=== PATIENT | female | born 1975 | race Caucasian/White ===

== ENCOUNTER → 2016-12-28 | Outpatient (CLI) | payer BC ==
[~2016-12-28] MED LIST: CEPH500C PO; OXYC1TAB3 PO; PROM25TA PO
--- NOTE | 2016-12-29 12:17 | MAMMOGRAPHY REPORT ---
BILATERAL DIGITAL SCREENING MAMMOGRAM TOMOSYNTHESIS WITH CAD: 12/28/2016 CLINICAL HISTORY: Routine screening. Patient has no complaints. TECHNIQUE: Bilateral breast tomosynthesis in addition to standard 2D mammography was performed. Curr ent study was also evaluated with a Computer Aided Detection (CAD) system. COMPARISON: Comparison is made to exam dated: 10/25/2015 mammogram - [facility]. BREAST COMPOSITION: The tissue of both breasts is extremely dense, which lowers the sensitivity of mammography. FINDINGS: There is a 7 mm asymmetry in the medial, posterior left breast, seen on the 2-D CC view a nd CC tomosynthesis slice 10. Although this could represent normal overlapping fibroglandular tissu e, additional spot compression tomosynthesis views and possibly ultrasound are recommended. No other suspicious mass, architectural distortion or cluster of microcalcifications is seen bilater ally. IMPRESSION: ACR BI-RADS CATEGORY 0: INCOMPLETE EVALUATION: NEED ADDITIONAL IMAGING EVALUATION The 7 mm asymmetry in the medial left breast needs additional evaluation. The patient will be called to schedule an appointment. Approximately 10% of breast cancers are not detected with mammography. A negative mammographic repor t should not delay biopsy if a clinically suggestive mass is present. Eliza Ball M.D. ay/:12/28/2016 21:25:27 Measurer: Mohini AMAYA)(Jose Carlos), [facility] letter sent: Addl Imaging 0 BI-RADS Code: ACR BI-RADS Category 0: Incomplete Evaluation: Need Additional Imaging Evaluation
== END | disposition home or self-care (01) ==
LOC: C.MAMM 14:38
PROVIDERS: ATTEND Family Medicine
DX: Z12.31 Encounter for screening mammogram for malignant neoplasm of breast (principal); N64.89 Other specified disorders of breast

== ENCOUNTER → 2017-01-06 | Outpatient (CLI) | payer BC ==
--- NOTE | 2017-01-06 12:47 | MAMMOGRAPHY REPORT ---
UNILATERAL LEFT DIGITAL DIAGNOSTIC MAMMOGRAM TOMOSYNTHESIS AND TARGETED LEFT ULTRASOUND: 01/06/2017 CLINICAL HISTORY: Callback from screening mammogram for left breast asymmetry. TECHNIQUE: Breast tomosynthesis in addition to standard 2D mammography was performed. Spot joanie tam left CC and MLO 2-D and tomosynthesis images were obtained. COMPARISON: Comparison is made to exams dated: 12/28/2016 mammogram and 10/25/2015 mammogram - [facility]. BREAST COMPOSITION: The tissue of the left breast is extremely dense, which lowers the sensitivity of mammography. FINDINGS: The previously described asymmetry seen within the left medial breast on the cc view effac es on the spot compression views, and has the appearance of normal fibroglandular tissue. No suspic ious mass or architectural distortion is noted in this region on the additional views. Targeted ultrasound was performed of the left medial breast in the region of the mammographic asymme try, which shows sonographically normal tissue without evidence of a mass or other suspicious sonogr aphic abnormality. IMPRESSION: ACR BI-RADS CATEGORY 2: BENIGN, TARGETED ULTRASOUND ACR BI-RADS CATEGORY 2: BENIGN The left breast asymmetry effaces on the additional views, without corresponding sonographic abnorma lity evident. The asymmetry is benign and compatible with normal overlapping fibroglandular tissue. There is no mammographic or targeted sonographic evidence of malignancy. A 1 year screening mammog joseline is recommended. The patient has been verbally notified of the results. Approximately 10% of breast cancers are not detected with mammography. A negative mammographic repor t should not delay biopsy if a clinically suggestive mass is present. Veronica Shaw M.D. /:01/06/2017 10:31:38 Dressmaking Teacher: Debi Castillo, [facility] letter sent: Normal /2 BI-RADS Code: ACR BI-RADS Category 2: Benign Ultrasound BI-RADS: ACR BI-RADS Category 2: Benign
== END | disposition home or self-care (01) ==
LOC: C.MAMM 09:05
PROVIDERS: ATTEND Family Medicine
DX: R92.8 Other abnormal and inconclusive findings on diagnostic imaging of breast (principal); N64.89 Other specified disorders of breast

== ENCOUNTER → 2018-01-04 | Outpatient (CLI) | payer OTHER ==
--- NOTE | 2018-01-04 12:51 | MAMMOGRAPHY REPORT ---
BILATERAL DIGITAL SCREENING MAMMOGRAM TOMOSYNTHESIS WITH CAD: 01/04/2018 CLINICAL HISTORY: Routine screening. Patient has no complaints. TECHNIQUE: Breast tomosynthesis in addition to standard 2D mammography was performed. Current study was also evaluated with a Computer Aided Detection (CAD) system. COMPARISON: Comparison is made to exams dated: 01/06/2017 ultrasound, 01/06/2017 mammogram, 12/28/2016 m ammogram, and 10/25/2015 mammogram - [facility]. BREAST COMPOSITION: The tissue of both breasts is extremely dense, which lowers the sensitivity of m ammography. FINDINGS: There is a possible small cluster of microcalcifications in the 6:00 posterior left breast , for which additional spot magnification views are recommended. No other suspicious mass, architectural distortion or cluster of microcalcifications is seen. IMPRESSION: ACR BI-RADS CATEGORY 0: INCOMPLETE EVALUATION: NEED ADDITIONAL IMAGING EVALUATION The possible small cluster of microcalcifications in the 6:00 posterior left breast needs additional evaluation. The patient will be called to schedule an appointment. Approximately 10% of breast cancers are not detected with mammography. A negative mammographic report should not delay biopsy if a clinically suggestive mass is present. Eliza Ball M.D. ay/:01/04/2018 08:53:19 Aspnet Developer: Debi OWENS(Swetha)(M), [facility] letter sent: Addl Imaging 0 BI-RADS Code: ACR BI-RADS Category 0: Incomplete Evaluation: Need Additional Imaging Evaluation
== END | disposition home or self-care (01) ==
LOC: C.MAMM 08:28
PROVIDERS: ATTEND Family Medicine
DX: Z12.31 Encounter for screening mammogram for malignant neoplasm of breast (principal)

== ENCOUNTER → 2018-01-11 | Outpatient (CLI) | payer OTHER ==
--- NOTE | 2018-01-12 07:50 | MAMMOGRAPHY REPORT ---
UNILATERAL LEFT DIGITAL DIAGNOSTIC MAMMOGRAM: 01/11/2018 CLINICAL HISTORY: 42-year-old woman with extremely dense breasts mammographically, called back from s creening mammography for a possible small cluster of microcalcifications in the left breast. TECHNIQUE: Spot magnification left CC and MLO views were obtained. COMPARISON: Comparison is made to exams dated: 01/04/2018 mammogram, 01/06/2017 ultrasound, 01/06/2017 mammogram, 12/28/2016 mammogram, and 10/25/2015 mammogram - [facility]. BREAST COMPOSITION: The tissue of the left breast is extremely dense, which lowers the sensitivity o f mammography. FINDINGS: The spot magnification views of the left breast demonstrate 3-4 loose groupings of approxim ately 34 punctate microcalcifications throughout the inferior left breast. None demonstrate definit tarsha layering to confirm benign milk of calcium, although they are less conspicuous and somewhat smudg y in the CC projection. No associated architectural distortion or obvious mass. When comparing back to prior available mammograms, some of the calcifications may have been present in 2016 but they are increasingly conspicuous. Given the numerous nature of grouped calcifications, and punctate morphol ogy they are probably benign, most likely representing fibrocystic change. However, given that long- term stability is not demonstrated mammographically we discussed options of close follow-up imaging v ersus sampling 1 of the groupings and continuing to closely follow the others with repeat spot magnif ication views. For now, we will opt to follow with spot magnification views in 6 months. IMPRESSION: ACR-BI-RADS CATEGORY 3: PROBABLY BENIGN There are 3-4 loose groupings containing 3-4 punctate microcalcifications in the inferior left breast that are increasingly conspicuous comparing to prior mammograms. Although they could represent xuan gn fibrocystic change, long-term stability is not demonstrated. Therefore, repeat left diagnostic ma mmograms including spot magnification views are recommended in 6 months. These results and recommendations were discussed with the patient at the time of the exam. She tenta tively scheduled a six-month follow-up appointment, but a discussion ensued that we could always atte mpt to biopsy one registration representative cluster and continue to follow the others closely with imaging. Approximately 10% of breast cancers are not detected with mammography. A negative mammographic report should not delay biopsy if a clinically suggestive mass is present. Eliza Ball M.D. ay/:01/11/2018 14:49:36 Fish Hatchery Inspector: Debi Castillo, [facility] letter sent: Follow Up Recommended 3 BI-RADS Code: ACR-BI-RADS Category 3: Probably Benign
== END | disposition home or self-care (01) ==
LOC: C.MAMM 12:51
PROVIDERS: ATTEND Family Medicine
DX: R92.0 Mammographic microcalcification found on diagnostic imaging of breast (principal)